=== PATIENT | male | born 1995 | race Caucasian/White ===

== ENCOUNTER 2017-12-23 23:40 | Emergency (ER) | payer OTHER ==
[~2017-12-23] VITALS: Ht 182.8 cm; Wt 102.1 kg
--- NOTE | ~2017-12-23 | EKG ---
[place], [place] ELECTROCARDIOGRAM REPORT NAME: ZE HICKS UNIT #: [id number] ROOM: DOCTOR: ERICA CANALES MD BIRTHDATE: [birth year] DOS: 12/24/2017 TIME: 0050 hours. Normal sinus rhythm at 88 beats per minute. The tracing is normal. No previous tracing is available for comparison. ERICA CANALES MD CM:EKGRPT:ELECTROCARDIOGRAM REPORT [id number] ERICA CANALES MD
[2017-12-24 00:43] LABS: BASO % 0.2 % (0.0-1.0); EOS % 0.1 % (1.0-4.0); HEMOGLOBIN 16.3 g/dl (14.0-18.0); LYMPH # 1.6 10*3/uL (1.3-4.4); LYMPH % 17.1 % (27.0-41.0); MEAN CELL VOLUME 85.9 fl (80.0-94.0); MEAN CORPUSCULAR HGB 29.8 pg (27.0-31.0); MEAN CORPUSCULAR HGB CONC 34.7 g/dl (33.0-37.0); MEAN PLATELET VOLUME 9.9 fl (9.6-12.3); MONO # 0.8 10*3/uL (0.1-1.0); MONO % 9.2 % (3.0-9.0); NEUT # 6.6 10*3/uL (2.3-7.9); NEUT % 73.1 % (47.0-73.0); PLATELET COUNT AUTOMATED 226 10*3/uL (130-400); RED BLOOD COUNT 5.47 10*6/uL (4.50-5.90); RED CELL DISTRI WIDTH 12.1 % (0-14.5)
[2017-12-24 00:53] LABS: INTERNATIONAL NORM RATIO 1.1 (2.0-3.5)
[2017-12-24 01:04] LABS: ALBUMIN 4.5 gm/dl (3.1-4.5); ALKALINE PHOSPHATASE 61 U/L (45-117); BUN 16 mg/dl (7-24); CHLORIDE 103 mmol/L (98-107); CREATININE 1.39 mg/dL (0.70-1.30); POTASSIUM 4.5 mmol/L (3.5-5.1); SGOT/AST 70 IU/L (3-35); SGPT/ALT 198 U/L (12-78); SODIUM 140 mmol/L (136-145); TOTAL PROTEIN 8.4 gm/dL (6.4-8.2)
[2017-12-24 01:05] LABS: TROPONIN I < 0.015 ng/ml (<0.045)
[2017-12-24] MEDS ORDERED: LEVAQUIN750 M1 PO (03:33)
== END 2017-12-24 03:46 | disposition home or self-care (01) ==
LOC: ED 23:40
PROVIDERS: Physician Assistant
DX: J18.9 Pneumonia, unspecified organism (principal)

== ENCOUNTER 2020-04-09 22:06 | Emergency (ER) | payer OTHER ==
[~2020-04-09] VITALS: Ht 175.2 cm; Wt 104.3 kg
[~2020-04-09 22:06] MED LIST: LEVAQUIN750 M1 PO
[2020-04-09] MEDS ORDERED: VISTARIL50 MG PO (23:46)
[2020-04-09] MEDS ORDERED: PREDNISONE20 M1 PO (23:46)
[2020-04-09] MEDS ORDERED: EPIPEN 2-P0.3 MG/0.3 IJ (23:50)
== END 2020-04-09 23:51 | disposition home or self-care (01) ==
LOC: ED 22:06
DX: T78.1XXA Other adverse food reactions, not elsewhere classified, initial encounter (principal); R21 Rash and other nonspecific skin eruption; R20.2 Paresthesia of skin; L29.9 Pruritus, unspecified; Z91.013 Allergy to seafood; Z79.2 Long term (current) use of antibiotics; X58.XXXA Exposure to other specified factors, initial encounter

== ENCOUNTER 2021-04-26 13:41 | Observation (INO) | payer OTHER ==
[~2021-04-26] VITALS: Ht 182.9 cm; Wt 118.8 kg
[~2021-04-26 13:41] MED LIST changes: +EPIPEN 2-P0.3 MG/0.3 IJ; +PREDNISONE20 M1 PO; +VISTARIL50 MG PO
[2021-04-26 13:47] VITALS: BP 175/97
[2021-04-26 16:43] LABS: BASO # 0.1 10*3/uL (0.0-0.1); BASO % 0.4 % (0.0-1.0); EOS # 0.1 10*3/uL (0.0-0.4); EOS % 1.1 % (1.0-4.0); HEMATOCRIT 46.4 % (42.0-52.0); LYMPH # 2.5 10*3/uL (1.3-4.4); LYMPH % 21.7 % (27.0-41.0); MEAN CELL VOLUME 87.5 fl (80.0-94.0); MEAN CORPUSCULAR HGB CONC 34.3 g/dl (33.0-37.0); MEAN PLATELET VOLUME 9.8 fl (9.6-12.3); MONO # 0.6 10*3/uL (0.1-1.0); MONO % 5.1 % (3.0-9.0); NEUT # 8.3 10*3/uL (2.3-7.9); NEUT % 71.4 % (47.0-73.0); PLATELET COUNT AUTOMATED 281 10*3/uL (130-400); RED CELL DISTRI WIDTH 12.2 % (0-14.5); WHITE BLOOD COUNT 11.7 10*3/uL (4.8-10.8)
[2021-04-26 16:59] LABS: ALBUMIN 4.1 gm/dl (3.1-4.5); ALKALINE PHOSPHATASE 62 U/L (45-117); BUN 19 mg/dl (7-24); CHLORIDE 108 mmol/L (98-107); CREATININE 1.35 mg/dL (0.70-1.30); POTASSIUM 4.3 mmol/L (3.5-5.1); SGOT/AST 57 IU/L (3-35); SGPT/ALT 202 U/L (12-78); SODIUM 140 mmol/L (136-145); TOTAL PROTEIN 7.7 gm/dL (6.4-8.2)
[2021-04-26 18:00] VITALS: BP 134/81
[2021-04-26] MEDS ORDERED: ZYRTEC10 M3 PO (18:47)
[2021-04-26 20:00] VITALS: BP 140/88
[2021-04-27] VITALS (8 sets, daily range): BP systolic 109–154; BP diastolic 51–90
[2021-04-27 06:00] LABS: BUN 18 mg/dl (7-24); CHLORIDE 107 mmol/L (98-107); CREATININE 1.14 mg/dL (0.70-1.30); POTASSIUM 3.9 mmol/L (3.5-5.1); SGOT/AST 45 IU/L (3-35); SGPT/ALT 176 U/L (12-78); SODIUM 138 mmol/L (136-145)
[2021-04-27 06:02] LABS: ALKALINE PHOSPHATASE 53 U/L (45-117)
[2021-04-27 06:04] LABS: BASO % 0.4 % (0.0-1.0); EOS # 0.3 10*3/uL (0.0-0.4); EOS % 2.7 % (1.0-4.0); HEMATOCRIT 44.2 % (42.0-52.0); LYMPH # 3.3 10*3/uL (1.3-4.4); MEAN CELL VOLUME 86.7 fl (80.0-94.0); MEAN CORPUSCULAR HGB 29.6 pg (27.0-31.0); MEAN CORPUSCULAR HGB CONC 34.2 g/dl (33.0-37.0); MEAN PLATELET VOLUME 10.2 fl (9.6-12.3); MONO # 0.6 10*3/uL (0.1-1.0); MONO % 5.9 % (3.0-9.0); NEUT # 5.8 10*3/uL (2.3-7.9); NEUT % 57.8 % (47.0-73.0); PLATELET COUNT AUTOMATED 292 10*3/uL (130-400); RED CELL DISTRI WIDTH 11.9 % (0-14.5); WHITE BLOOD COUNT 10.1 10*3/uL (4.8-10.8)
[2021-04-27] MEDS ORDERED: ULTRAM50 MG PO (17:20)
[2021-04-27] MEDS ORDERED: XARELTO10 MG PO (17:22)
[2021-04-27] MEDS ORDERED: AUGMENTIN 875875 MG PO (17:22)
[2021-04-28] MEDS ORDERED: ONDANSETRON HYDR4 M1 PO (06:12)
[2021-04-28 10:29] LABS: ACID FAST SPEC PROCESSING Tissue Grinding (.)
[2021-04-28 10:29] LABS: ACID FAST SPEC PROCESSING Tissue Grinding (.)
[2021-04-28 10:29] LABS: ACID FAST SPEC PROCESSING Tissue Grinding (.)
== END 2021-04-27 18:13 | disposition home or self-care (01) ==
LOC: ED 13:41 → EDHOLD 15:28 → 4E 15:28
PROVIDERS: Podiatrist; Student in an Organized Health Care Education/Training Program; ADMIT Family Medicine; ATTEND Family Medicine
DX: S98.112A Complete traumatic amputation of left great toe, initial encounter (principal); W23.0XXA Caught, crushed, jammed, or pinched between moving objects, initial encounter; Y93.89 Activity, other specified; Y92.828 Other wilderness area as the place of occurrence of the external cause; Y99.8 Other external cause status; M79.675 Pain in left toe(s)

== ENCOUNTER 2021-04-28 03:23 | Emergency (ER) | payer OTHER ==
[~2021-04-28] VITALS: Ht 182.8 cm; Wt 118.8 kg
[~2021-04-28 03:23] MED LIST changes: +AUGMENTIN 875875 MG PO; +ULTRAM50 MG PO; +XARELTO10 MG PO; +ZYRTEC10 M3 PO
[2021-04-28] MEDS ORDERED: ONDANSETRON HYDR4 M1 PO (06:12)
== END 2021-04-28 06:46 | disposition home or self-care (01) ==
LOC: ED 03:23
DX: M79.672 Pain in left foot (principal); G89.18 Other acute postprocedural pain; Z91.013 Allergy to seafood; Z79.899 Other long term (current) drug therapy

== ENCOUNTER 2022-06-10 21:12 | Emergency (ER) | payer OTHER ==
[~2022-06-10] VITALS: Ht 182.8 cm; Wt 136.5 kg
[~2022-06-10 21:12] MED LIST changes: +ONDANSETRON HYDR4 M1 PO
[2022-06-10 21:34] LABS: BASO # 0.1 10*3/uL (0.0-0.1); BASO % 0.5 % (0.0-1.0); EOS # 0.2 10*3/uL (0.0-0.4); EOS % 2.5 % (1.0-4.0); LYMPH # 3.6 10*3/uL (1.3-4.4); LYMPH % 37.6 % (27.0-41.0); MEAN CELL VOLUME 85.3 fl (80.0-94.0); MEAN CORPUSCULAR HGB 30.6 pg (27.0-31.0); MEAN CORPUSCULAR HGB CONC 35.9 g/dl (33.0-37.0); MONO # 0.6 10*3/uL (0.1-1.0); MONO % 5.8 % (3.0-9.0); NEUT # 5.1 10*3/uL (2.3-7.9); NEUT % 53.5 % (47.0-73.0); PLATELET COUNT AUTOMATED 293 10*3/uL (130-400); RED BLOOD COUNT 5.39 10*6/uL (4.50-5.90); RED CELL DISTRI WIDTH 11.9 % (0-14.5); WHITE BLOOD COUNT 9.6 10*3/uL (4.8-10.8)
[2022-06-10 22:12] LABS: ALKALINE PHOSPHATASE 64 U/L (45-117); BUN 18 mg/dl (7-24); CHLORIDE 111 mmol/L (98-107); CREATININE 1.34 mg/dL (0.70-1.30); POTASSIUM 3.7 mmol/L (3.5-5.1); SGOT/AST 75 IU/L (3-35); SGPT/ALT 201 U/L (12-78); SODIUM 144 mmol/L (136-145); TOTAL PROTEIN 7.1 gm/dL (6.4-8.2)
[2022-06-10 22:29] LABS: VENOUS PH 7.379 (7.37-7.45)
== END 2022-06-10 23:32 | disposition home or self-care (01) ==
LOC: ED 21:12
PROVIDERS: Emergency Medicine
DX: T67.5XXA Heat exhaustion, unspecified, initial encounter (principal); Z91.013 Allergy to seafood; Z79.899 Other long term (current) drug therapy; X08.8XXA Exposure to other specified smoke, fire and flames, initial encounter; Y93.89 Activity, other specified; Y92.89 Other specified places as the place of occurrence of the external cause; Y99.0 Civilian activity done for income or pay